=== PATIENT | female | born 1990 | race African-American/Black ===

== ENCOUNTER 2017-12-13 02:17 | Emergency (ER) | payer OTHER ==
[~2017-12-13] VITALS: Ht 162.6 cm; Wt 65.0 kg
[~2017-12-13 02:17] MED LIST: AMOX500T PO; GUAI100S6 PO; Z.0.BCPILL PO
[2017-12-13 02:18] VITALS: BP 126/83; PULSE 78; RESP 16; TEMP 98.7; O2SAT 99
[2017-12-13] MEDS ORDERED: OSEL75 PO (02:37)
--- NOTE | 2017-12-13 02:37 | PD ---
HPI Chief Complaint: Back/ Neck Pain or Injury Time Seen by Provider: 02:25 Travel History International Travel<30 days: No Contact w/Intl Traveler<30days: No Traveled to known affect area: No History of Present Illness HPI DIAGNOSED WITH FLU, ON TAMIFLU AND IMPROVING EXCEPT FOR C/O LOWER BACK PAIN, SHARP, WORSE WITH MOVEMENT, LUMBOSACRAL REGION, NO TRAUMA, RATES IT 05/07..... PT DENIES FEVER/N/V/D/CP/ABDPAIN/INCONTINENCE/RASH PFSH Past Medical History Medical History: Denies Significant Hx Diminished Hearing: No Tetanus Vaccination: Unknown Influenza Vaccination: No ?: Not LMP: 11/19/2017 Social History Alcohol Use: Yes (occasionally) Tobacco Use: No Allergies-Medications (Allergen,Severity, Reaction): Coded Allergies: No Known Allergies (Verified Adverse Reaction, Unknown, 12/13/17) Reported Meds & Prescriptions Reported Meds & Active Scripts Active Naproxen EC (Naproxen) 375 Mg Tabdr 375 Mg PO BID Flexeril (Cyclobenzaprine HCl) 10 Mg Tab 10 Mg PO TID Reported Tamiflu (Oseltamivir Phosphate) 75 Mg Cap 75 Mg PO DAILY Review of Systems Except as stated in HPI: all other systems reviewed are Neg General / Constitutional: No: Fever Eyes: No: Visual changes HENT: No: Headaches Cardiovascular: No: Chest Pain or Discomfort Respiratory: No: Shortness of Breath Gastrointestinal: No: Abdominal Pain Genitourinary: No: Dysuria Musculoskeletal: Positive: Pain Skin: No Rash Neurologic: No: Weakness Psychiatric: No: Depression Endocrine: No: Polydipsia Hematologic/Lymphatic: No: Easy Bruising Physical Exam Narrative GENERAL: SKIN: Warm and dry. HEAD: Atraumatic. Normocephalic. EYES: Pupils equal and round. No scleral icterus. No injection or drainage. ENT: No nasal bleeding or discharge. Mucous membranes pink and moist. NECK: Trachea midline. No JVD. CARDIOVASCULAR: Regular rate and rhythm. RESPIRATORY: No accessory muscle use. Clear to auscultation. Breath sounds equal bilaterally. GASTROINTESTINAL: Abdomen soft, non-tender, nondistended. MUSCULOSKELETAL: Extremities without clubbing, cyanosis, or edema. No obvious deformities. PARASPINAL SPASM NOTED ON EXAM, NO RASH, NORMAL REFLEXES NEUROLOGICAL: Awake and alert. No obvious cranial nerve deficits. Motor grossly within normal limits. Five out of 5 muscle strength in the arms and legs. Normal speech. PSYCHIATRIC: Appropriate mood and affect; insight and judgment normal. Data Data Last Documented VS Vital Signs Date Time Temp Pulse Resp B/P (MAP) Pulse Ox O2 Delivery O2 Flow Rate FiO2 12/13/17 03:08 12/13/17 02:18 98.7 78 16 99 Room Air Orders Orders Urinalysis - C+S If Indicated (12/13/17 02:38) Ed Urine Pregnancytest Poc (12/13/17 02:38) Orphenadrine Inj (Norflex Inj) (12/13/17 02:45) Ketorolac Inj (Toradol Inj) (12/13/17 02:45) Ed Discharge Order (12/13/17 03:07) Labs Laboratory Tests Test 12/13/17 02:50 Urine Color LIGHT-YELLOW Urine Turbidity HAZY Urine pH 6.0 Urine Specific [place] 1.009 Urine Protein NEG mg/dL Urine Glucose (UA) NEG mg/dL Urine Ketones TRACE mg/dL Urine Occult Blood NEG Urine Nitrite NEG Urine Bilirubin NEG Urine Urobilinogen LESS THAN 2.0 MG/DL Urine Leukocyte Esterase NEG Urine RBC LESS THAN 1 /hpf Urine WBC LESS THAN 1 /hpf Urine Squamous Epithelial Cells 13 /hpf Microscopic Urinalysis Comment CULT NOT INDICATED MDM Medical Decision Making Medical Screen Exam Complete: Yes Emergency Medical Condition: Yes Medical Record Reviewed: Yes Differential Diagnosis MUSCLE STRAIN V CONUS MED V NEUROPATHY Narrative Course HCG negative, UA negative for UTI. On examination no saddle anesthesia, no incontinence, no evidence of any abnormal reflexes. Patient was given Norflex and Toradol IM which helped resolve her symptoms Diagnosis Primary Impression: Lumbar strain Patient Instructions: General Instructions, Muscle Strain (ED) Scripts Naproxen DR (Naproxen EC) 375 Mg Tabdr 375 MG PO BID, #20 TAB 0 Refills Prov: Agustín Mullen MD 12/13/17 Cyclobenzaprine (Flexeril) 10 Mg Tab 10 MG PO TID for Muscle Spasm, #15 TAB 0 Refills Prov: Agustín Mullen MD 12/13/17 Disposition: 01 DISCHARGE HOME Condition: Stable Agustín Mullen MD Dec 13, 2017 02:37
[2017-12-13] MEDS ORDERED: KETOROLAC TROMETHAMINE 60 MG/2 ML (IM) VIAL IM ONE (02:45)
[2017-12-13] MEDS ORDERED: ORPHENADRINE INJ 60 MG/2 ML AMP IM ONE (02:45)
[2017-12-13 03:03] LABS: BILIRUBIN, URINE NEG (NEG); BLOOD, URINE NEG (NEG); GLUCOSE,URINE NEG (NEG); KETONE, URINE TRACE mg/dL (NEG); NITRITE,URINE NEG (NEG); SQUAMOUS EPITHELIAL CELL URINE 13 /hpf (0-5); URINE COLOR LIGHT-YELLOW (YELLW/STRAW); URINE LEUKOCYTE ESTERASE NEG (NEG)
[2017-12-13] MEDS ORDERED: CYCL10TA PO (03:07)
[2017-12-13] MEDS ORDERED: NAPR375T4 PO (03:07)
== END 2017-12-13 03:20 | disposition home or self-care (01) ==
LOC: NEPC 02:17
DX: S39.012A Strain of muscle, fascia and tendon of lower back, initial encounter (principal); X58.XXXA Exposure to other specified factors, initial encounter
CPT/HCPCS: 81001; 84703; 96372; 99283; J1885; J2360